=== PATIENT | male | born 1965 | race Caucasian/White ===

== ENCOUNTER 2020-01-17 20:39 | Emergency (ER) | payer BC ==
[~2020-01-17] VITALS: Ht 182.9 cm; Wt 90.0 kg
[2020-01-17] MEDS ORDERED: TETanus/Pertussis (Acell)/Diphther VAC/PF (Tdap-Adult) 0.5ml syringe IMVAC ONE (20:50)
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
--- NOTE | 2020-01-17 21:02 | NUR ---
correction for initial note...case number is [id number]
[2020-01-17] MEDS ORDERED: AMOX-422 PO (23:06)
[2020-01-17 23:16] VITALS: BP 155/100
== END 2020-01-17 23:18 | disposition home or self-care (01) ==
LOC: ER 20:40
DX: S01.511A Laceration without foreign body of lip, initial encounter (principal); Z72.89 Other problems related to lifestyle; Z79.2 Long term (current) use of antibiotics; X58.XXXA Exposure to other specified factors, initial encounter; Y93.89 Activity, other specified; Y92.89 Other specified places as the place of occurrence of the external cause; Y99.8 Other external cause status
CPT/HCPCS: 40650; 90471; 90715; 99283